=== PATIENT | female | born 1980 | race Two or more races ===

== ENCOUNTER 2024-03-05 13:57 | Emergency (ER) | payer BC ==
[2024-03-05 14:11] VITALS: BP 133/72; PULSE 84; RESP 18; TEMP 98.1; BMI 49.2
== END 2024-03-05 15:40 | disposition home or self-care (01) ==
LOC: JERFT 13:57
DX: R59.1 Generalized enlarged lymph nodes (principal); H93.8X2 Other specified disorders of left ear
CPT/HCPCS: 99282-25